=== PATIENT | female | born 1980 | race Caucasian/White ===

== ENCOUNTER 2024-05-01 14:48 | Outpatient (AMB) | payer OTHER, SELFPAY ==
--- NOTE | 2024-05-01 14:50 | A.OFFVIS_ITS ---
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 She also suffers from chronic widespread pain for more than 10 years. Denies any recent or past injuring, trauma, or falls. Reports chronic laxity of tendons and ligaments due to EDS and connective tissue disorder. Patient was seeing EDS specialist in [place] for interventional treatments, including fascia hydrodissection with 20 injections in neck and shoulders without any significant relief. She has been in physical therapy at [facility] since summer with some benefit. She often loose voice and reports hoarseness and has completed speech therapy per ENT evaluation. Neck and shoulder pain affects her daily activities and functioning, mood, sleep, range of motion and social interactions. Pain is most severe during morning and evening which she rates 7- 8/10 and least severe during mid-day, rated at 5/10. She has tried in the past Valium, Flexeril, Xanax, amitriptyline (causes mood changes), gabapentin and pregabalin (caused brain fog), NSAIDs, topical applications, physical therapy, chiropractic manipulation, regular massage therapy, acupuncture, TENS unit, and home traction unit. Denies any fever or chills, shortness of breath, chest pain, visual disturbances, plan weakness, impaired gait, bladder or bowel dysfunction or saddle anesthesia. Location: Neck and bilateral shoulders, worse on right side Duration: Chronic pain >10 years Characteristics of symptom or complaint: Heavy, aching, tiring, dull, sore, sickening, hurting, cool/cold-Raynauds Aggravating or associated factors: Movements, cold weather changes, ROM, ADLs, sleep Relieving factors: Heat/cold therapy, biofreeze, Ibuprofen, ASA, flexeril Treatment: PT, regular massages, HEP, neck injections PFSH Medical History (Updated 05/04/24 @ 20:52 by JUANY Gurrola) Orthostatic hypotension Recurrent major depressive disorder Hyperlipidemia Headache GERD (gastroesophageal reflux disease) Rosalio-Danlos syndrome Colon polyps Social History (Updated 05/01/24 @ 15:00 by Neva Bowers) Alcohol intake: former Patient Tobacco Use Status: Former Tobacco user Substance Use Type: Marijuana Review of Systems Const All systems reviewed & are unremarkable except as noted in HPI and below ENT Reports Normal hearing present Neuro Reports Normal hearing present, Denies Abnormal speech present and Denies Sensory deficit (Neuro) Physical Exam Vital Signs: Last Vital Signs Pulse 82 05/01/24 14:57 BP 128/79 05/01/24 14:57 Pulse Ox 98 05/01/24 14:57 Oxygen Delivery Method Room Air 05/01/24 14:57 BMI result Body Mass Index 22.6 General: Appears afebrile. Alert and oriented. Mood and affect appropriate. Follows and participates in conversation appropriately. Respiratory effort is unlabored. No cough. Able to transition from sit to stand unassisted. Ambulates with bilaterally normal heel strike and toe off. Eyes Pupils: Equal, round and reactive pupils present Neck Other: Patient with decreased cervical ROM in all planes/especially with right lateral rotation. Reports increased pain with cervical extension and flexion. Spurling compression test is negative. Pain is unchanged by Spurling maneuver with retraction. Elvey's tension test is negative bilaterally. Lhermitte's test was negative. DTR intact, +2 and symmetrical. Patient demonstrated 5/5 motor strength of bilateral upper extremities. 2 + radial pulses. Significant tightness throughout left upper trapezius as well as TTP throughout bilateral upper trapezius muscles. No paravertebral tenderness over facet joints bilaterally. Multiple taut bands palpated throughout bilateral upper trapezius muscles. Neck: Yes normal visual inspection, Yes full ROM, Yes no lymphadenopathy, Yes no meningeal signs, Yes supple, No anterior neck swelling, No torticollis, Yes no JVD, No prominent supraclavicular fat pad and No prominent dorsocervical fat pad Back/Spine/Pelvis Cervical Spine: cervical ROM normal, No Lhermitte's sign positive, loss of normal cervical lordosis, cervical muscular tenderness, pain with cervical ROM, No Cervical spine scars present, cervical spasm, No Cervical spine tenderness and No step off deformity Thoracic/Lumbar Spine: thoracic and lumbar spine normal to inspection, thoraco- lumbar ROM normal, pain with thoraco-lumbar ROM, No thoracic spinal tenderness and No lumbar spinal tenderness Sacroiliac joints: on the right tender to palpation Neuro General: tone normal, moves all extremities, Normal light touch and pain sensation, no meningeal signs, no focal motor deficits and CN's II-XI intact bilaterally Cranial nerves: Yes Equal, round and reactive pupils present, Yes Symmetric palate elevation present and Yes Normal hearing present Cognition (Neuro): normal cognition Speech: No Abnormal speech present Gait exam (Neuro): Normal gait present Motor exam (neuro): 5/5 motor strength present throughout, no tremor noted and Motor abnormalities not present Sensory Exam: No Sensory deficit (Neuro) Extrem General: Yes capillary refill normal, Yes no clubbing, cyanosis or edema and Yes no calf tenderness Results Reviewed Results Reviewed: Assessment & Plan Assessment & Plan (1) Cervical spondylosis: Code(s): M47.812 - Spondylosis without myelopathy or radiculopathy, cervical region Category: Medical (2) Cervicogenic headache: Code(s): G44.86 - Cervicogenic headache Category: Medical (3) Muscle spasms of neck: Code(s): M62.838 - Other muscle spasm Category: Medical (4) Bilateral shoulder pain: Code(s): M25.511 - Pain in right shoulder; M25.512 - Pain in left shoulder Category: Medical (5) Rosalio-Danlos syndrome: Code(s): Q79.60 - Rosalio-Danlos syndrome, unspecified Category: Medical (6) Degenerative disc disease, cervical: Code(s): M50.30 - Other cervical disc degeneration, unspecified cervical region Category: Medical Plan Schedule Neck trigger point injections and dry needling with Dr. Murillo for muscle spasms and stiffness in neck and shoulder region. Schedule bilateral diagnostic C3-C4-C5 MBB with local and fluoroscopy for cervical spondylosis and cervicogenic headaches for potential Sprint PNS or therapeutic injections. We also discussed cervical medial branch RFA. Informational pamphlets provided. Expectations, risks and benefits were reviewed. Patient is aware she will be contacted to schedule this procedure. Script provided for methocarbamol. Side effects and precautions were discussed with patient. All questions were answered and the patient is in agreement of plan. Follow-up after injections and sooner as needed. Medications: New 2 methocarbamol 750 mg PO BID PRN 30 tabs 0RF muscle spasm G44.86 - Cervicogenic headache, M47.812 - Spondylosis without myelopathy or radiculopathy, cervical region, M62.838 - Other muscle spasm Coding Level of Care Code New Pt Level 4 (11180) Complex EM visit Add On G2211 Diagnoses Cervical spondylosis M47.812 Cervicogenic headache G44.86 Muscle spasms of neck M62.838 Bilateral shoulder pain M25.511; M25.512 Rosalio-Danlos syndrome Q79.60 Degenerative disc disease, cervical M50.30
[2024-05-01 14:57] VITALS: BP 128/79; PULSE 82; O2SAT 98; BMI 22.6
== END 2024-05-01 15:54 | disposition home or self-care (01) ==
PROVIDERS: PCP Nurse Practitioner; Visit Provider Nurse Practitioner Family
DX: M47.812 Spondylosis without myelopathy or radiculopathy, cervical region (principal); G44.86 Cervicogenic headache; M62.838 Other muscle spasm; M25.511 Pain in right shoulder; M25.512 Pain in left shoulder; Q79.60 Ehlers-Danlos syndrome, unspecified; M50.30 Other cervical disc degeneration, unspecified cervical region
CPT/HCPCS: 99204

== ENCOUNTER 2024-05-14 07:34 | Outpatient (REF) | payer OTHER, SELFPAY ==
--- NOTE | ~2024-05-14 | FL_ITS ---
EXAMINATION: FLUOROSCOPY GUIDANCE FOR NEEDLE PLACEMENT CLINICAL INFORMATION: M47.812 - Spondylosis without myelopathy or radiculopathy, cervical region COMPARISON: None available. TECHNIQUE: Intraoperative fluoroscopy, cervical spine region. FINDINGS: Doppler present. Patient's positioning left side down and right side up. 2. Images obtained.. FLUOROSCOPY TIME: 0.1 minutes. DOSE AREA PRODUCT: 0.531 uGy-m2 (microgray-meter squared) FL/FL guidance in treatment room IMPRESSION: Intraoperative fluoroscopy guidance, cervical region. Electronically signed by: Kaleb Lovett MD 05/27/2024 01:37 PM [place]
== END 2024-05-14 07:35 | disposition home or self-care (01) ==
LOC: CF 07:34
PROVIDERS: Visit Provider Internal Medicine
DX: M47.812 Spondylosis without myelopathy or radiculopathy, cervical region (principal)
CPT/HCPCS: 64490; 64491; J2795; Q9967

== ENCOUNTER 2024-05-14 11:09 | Outpatient (AMB) | payer OTHER, SELFPAY ==
[2024-05-14 11:18] VITALS: BP 129/69; PULSE 92; O2SAT 100
--- NOTE | 2024-05-14 11:18 | MHC.OFFVIS ---
Vital Signs 05/14/24 11:18 05/14/24 11:54 BP 129/69 124/78 Blood Pressure Location Lt brachial Lt brachial Position Sitting Sitting Pulse 92 93 Pulse Source Pulse Oximeter Pulse Oximeter Pulse Oximetry (%) 100 98 Oxygen Delivery Method Room Air Room Air Intake Visit Reasons: Right Dx C3-C4-C5 MBB Allergies codeine Allergy (Unknown, Verified 05/01/24 15:01) Unknown HPI HPI Right Dx C3-C4-C5 MBB: Details: Patient presents for scheduled procedure. Denies any recent cough, cold, infection, fever or other significant changes in medical history since last office visit. [facility] Medical History (Updated 05/04/24 @ 20:52 by JUANY Gurrola) Orthostatic hypotension Recurrent major depressive disorder Hyperlipidemia Headache GERD (gastroesophageal reflux disease) Rosalio-Danlos syndrome Colon polyps Social History (Updated 05/01/24 @ 15:00 by Neva Bowers) Alcohol intake: former Patient Tobacco Use Status: Former Tobacco user Substance Use Type: Marijuana Physical Exam Vital Signs: Last Vital Signs Pulse 92 05/14/24 11:18 BP 129/69 05/14/24 11:18 Pulse Ox 100 05/14/24 11:18 Oxygen Delivery Method Room Air 05/14/24 11:18 Office Procedures Cervical/Thoracic Facet Inj Details: Diagnostic Cervical Medial Branch Block, Right C3, C4, C5 medial branches After obtaining written consent, pre-procedure blood pressure and pulse were recorded and are in the nursing record for review. The patient was placed in a lateral position. The respective cervical area was prepped with chloraprep and draped in sterile fashion. The skin over the target medial branch nerves was anesthetized with 0.5% lidocaine. A 25 gauge 1.5 inch needle was inserted into the target medial branch nerve under fluoroscopic guidance. No paresthesias were elicited with needle placement and aspiration was negative for blood and CSF. Next, 0.2cc of omnipaque 180 was injected to verify positioning. Next 0.5 ml 0.5% ropivicaine was injected (0.5 cc total per level). The identical procedure was performed at the remaining levels. The skin was cleansed and a sterile bandage was applied. Following the procedure the patient's vital signs were stable. The patient tolerated the procedure well and no complications were encountered. Following the procedure the patient's vital signs were stable. The patient was discharged home in good condition with post-procedural instructions. Time Out: Immediately prior to the procedure, the following was verbally confirmed that there is a signed consent form and that the correct patient, planned procedure, site and side are consistent with documentation and that necessary equipment and/or blood products are available prior to the start of the case. Complications: none EBL: <5 cc 31226 - with Fluoroscopy 77963 - second level, with Fluoroscopy Procedure code (CPT) selection complete Assessment & Plan Assessment & Plan (1) Cervical spondylosis: Code(s): M47.812 - Spondylosis without myelopathy or radiculopathy, cervical region Category: Medical Plan Patient is status post right C3, C4, C5 diagnostic medial branch blocks. Patient tolerated procedure well and was discharged home in stable condition with discharge instructions. All questions were answered. We will follow-up via telephone or in clinic to assess response to therapy. A follow-up appointment was made during today's visit. Orders: Orders FL guidance in treatment room Today M47.812 - Spondylosis without myelopathy or radiculopathy, cervical region Coding Level of Care Code Procedure Only Diagnoses Cervical spondylosis M47.812 CPT Codes Facet Injection Cervical/Thoracic - CPT: 00954 - with Fluoroscopy ([id number]) Facet Injection Cervical/Thoracic - CPT: 16172 - second level, with Fluoroscopy ([id number])
[2024-05-14 11:54] VITALS: BP 124/78; PULSE 93; O2SAT 98
--- OUTSIDE RECORDS SUMMARY | 2024-05-14 12:06 | XMS_ITS | Continuity of Care Document ---
Author Organization [facility] Address [address] [place], [place] Phone [phone] Care Team Providers Care Vice Chair Name Role Phone Arnaldo Holly MD Care Team Information Sap Solution Manager Consultant U navailable ANGELA GRIFFIN M.D. Care Team Information Rec eiver Unavailable Arnaldo Holly MD Primary Care Physician Unavailab le Social History Type Date Description Comments Sex Unknown
== END 2024-05-14 11:56 | disposition home or self-care (01) ==
LOC: HO.PMCPRC 11:09
PROVIDERS: PCP Nurse Practitioner; Visit Provider Internal Medicine
DX: M47.812 Spondylosis without myelopathy or radiculopathy, cervical region (principal)
CPT/HCPCS: 64490; 64491

== ENCOUNTER 2024-05-21 06:25 | Outpatient (REF) | payer OTHER, SELFPAY ==
--- OUTSIDE RECORDS SUMMARY | 2024-05-21 06:28 | XMS_ITS | Continuity of Care Document ---
Author Organization [facility] Address [address] [place], [place] Phone [phone] Care Team Providers Care Traffic Observer Name Role Phone Arnaldo Holly MD Care Team Information Photo Engraver U navailable ANGELA GRIFFIN M.D. Care Team Information Rec eiver Unavailable Arnaldo Holly MD Primary Care Physician Unavailab le Social History Type Date Description Comments Sex Unknown
== END 2024-05-21 06:26 | disposition home or self-care (01) ==
LOC: CF 06:25
PROVIDERS: Visit Provider Internal Medicine
DX: Z13.89 Encounter for screening for other disorder (principal)

== ENCOUNTER 2024-05-25 12:08 | Outpatient (AMB) | payer OTHER, SELFPAY ==
--- NOTE | 2024-05-25 12:14 | MHC.OFFVIS ---
Vital Signs 05/25/24 12:15 Height 5 ft 7 in Weight 144 lb BMI 22.6 BP 111/64 Blood Pressure Location Lt brachial Position Sitting Respiration 15 Pulse 82 Pulse Source Pulse Oximeter Pulse Oximetry (%) 100 Oxygen Delivery Method Room Air Intake Visit Reasons: Schedule Follow Up Per Dr. Murillo Allergies codeine Allergy (Unknown, Verified 05/25/24 12:16) Unknown Medication List - Last Reconciled 05/25/24 by Christiana Ansari LPN aspirin 325 mg PO DAILY biotin 2.5 mg PO DAILY clindamycin phosphate 1% 1 appl topical BID fluoxetine 10 mg PO DAILY linaclotide (Linzess) 145 mcg PO DAILY loratadine 10 mg PO DAILY lorazepam 0.5 mg PO ONCE PRN 1 day lysine 1,000 mg PO DAILY methocarbamol 750 mg PO BID PRN omeprazole 20 mg PO DAILY potassium chloride ER 8 mEq PO DAILY quercetin 250 mg PO TID triamcinolone acetonide 0.1% 1 appl dental BID HPI HPI Schedule Follow Up Per Dr. Murillo: Details: Carolyn had a very painful experience with the diagnostic cervical medial branch blocks and is not interested in repeating facet blocks or procedures anymore. She also did not report significant relief following the injection, and felt that her pain was worse the day of an after the injection. Today she reports pain, more pronounced on the right side that radiates in the temporal distribution towards her right eye. She also reports a history of vocal cord paralysis which improves with applying pressure at a trigger point in her right occipital region. She also has a set of vocal cord exercises prescribed to her by a speech therapist which help restore her vocal cord mobility when the paralysis occurs. She has previously failed multiple interventions in techniques for her pain condition. She feels she has significant spasticity in her trapezius and SCM regions. She has never tried Botox injections for her headaches or for her SCM/trapezius spasticity. She has a known diagnosis of EDS. She has never had Marfan workup but reports that she had a negative echocardiogram. She is 5 ft 7. On exam today: Appears afebrile. Alert and oriented. Mood and affect appropriate. Follows and participates in conversation appropriately. Respiratory effort is unlabored. Able to transition from sit to stand unassisted. Ambulates with bilaterally normal heel strike and toe off. Able to stand and walk on toes and heels. [facility] Medical History (Updated 05/04/24 @ 20:52 by JUANY Gurrola) Orthostatic hypotension Recurrent major depressive disorder Hyperlipidemia Headache GERD (gastroesophageal reflux disease) Rosalio-Danlos syndrome Colon polyps Social History (Updated 05/01/24 @ 15:00 by Neva Bowers) Alcohol intake: former Patient Tobacco Use Status: Former Tobacco user Substance Use Type: Marijuana Physical Exam Vital Signs: Last Vital Signs Pulse 82 05/25/24 12:15 Resp 15 05/25/24 12:15 BP 111/64 05/25/24 12:15 Pulse Ox 100 05/25/24 12:15 Oxygen Delivery Method Room Air 05/25/24 12:15 BMI result Body Mass Index 22.6 Assessment & Plan Assessment & Plan (1) Degenerative disc disease, cervical: Code(s): M50.30 - Other cervical disc degeneration, unspecified cervical region Category: Medical (2) Rosalio-Danlos syndrome: Code(s): Q79.60 - Rosalio-Danlos syndrome, unspecified Category: Medical (3) Bilateral shoulder pain: Code(s): M25.511 - Pain in right shoulder; M25.512 - Pain in left shoulder Category: Medical (4) Cervicogenic headache: Code(s): G44.86 - Cervicogenic headache Category: Medical (5) Cervical spondylosis: Code(s): M47.812 - Spondylosis without myelopathy or radiculopathy, cervical region Category: Medical (6) Muscle spasms of neck: Code(s): M62.838 - Other muscle spasm Category: Medical Plan I had a long discussion with her regarding possible differential diagnoses and treatment options that are available at this point. Given the lack of response to diagnostic medial branch blocks and her lack of tolerance for that procedure, I do not think she is a good candidate for proceeding with the radiofrequency ablation, especially given her young age. I discussed temporary medial branch nerve stimulation of the cervical medial branches to treat her cervical facet mediated component. I do think she has cervical degenerative disc and joint disease on her imaging which could be contributing to some of her symptoms and driving some of the muscle spasticity. I went over the details of the procedure and offered to proceed with right C4 versus C5 temporary medial branch nerve stimulation as a next step in her management followed by the left side 2 weeks later. Patient is in agreement with proceeding with temporary medial branch nerve stimulation therapy. If she fails this, we can consider a trial of Botox injections to her spastic muscles, under the understanding that her headache and neck stiffness syndrome could be driven by a purely muscular process as well given her connective tissue disorder diagnosis. Patient expressed understanding and is in agreement with the plan. Coding Level of Care Code Est Pt Level 4 (58075) Diagnoses Degenerative disc disease, cervical M50.30 Rosalio-Danlos syndrome Q79.60 Bilateral shoulder pain M25.511; M25.512 Cervicogenic headache G44.86 Cervical spondylosis M47.812 Muscle spasms of neck M62.838
[2024-05-25 12:15] VITALS: BP 111/64; PULSE 82; RESP 15; O2SAT 100; BMI 22.6
== END 2024-05-25 12:47 | disposition home or self-care (01) ==
PROVIDERS: PCP Nurse Practitioner; Visit Provider Internal Medicine
DX: M50.30 Other cervical disc degeneration, unspecified cervical region (principal); Q79.60 Ehlers-Danlos syndrome, unspecified; M25.511 Pain in right shoulder; M25.512 Pain in left shoulder; G44.86 Cervicogenic headache; M47.812 Spondylosis without myelopathy or radiculopathy, cervical region; M62.838 Other muscle spasm
CPT/HCPCS: 99214

== ENCOUNTER → 2024-05-25 12:08 | Outpatient (BNVA) | payer OTHER, SELFPAY | PROVIDERS: PCP Nurse Practitioner; Visit Provider Internal Medicine ==